=== PATIENT | female | born 1975 | race Caucasian/White ===

== ENCOUNTER 2020-06-25 08:39 | Emergency (ER) | payer OTHER ==
[~2020-06-25] VITALS: Ht 167.6 cm; Wt 104.3 kg
[2020-06-25 09:34] VITALS: BP 172/88
== END 2020-06-25 09:35 | disposition home or self-care (01) ==
LOC: M.ERS 08:39
DX: S61.511A Laceration without foreign body of right wrist, initial encounter (principal); Z90.711 Acquired absence of uterus with remaining cervical stump; W25.XXXA Contact with sharp glass, initial encounter; Y93.G1 Activity, food preparation and clean up; Y92.89 Other specified places as the place of occurrence of the external cause; Y99.8 Other external cause status

== ENCOUNTER 2021-02-04 18:18 | Emergency (ER) | payer OTHER ==
[~2021-02-04] VITALS: Ht 167.6 cm; Wt 90.7 kg
[2021-02-04 18:56] LABS: ABSOLUTE BASOPHILS 0.1 thou/uL (0.0-0.2); ABSOLUTE LYMPHOCYTES 2.1 thou/uL (0.8-5.3); ABSOLUTE MONOCYTES 0.5 thou/uL (0.0-1.2); ABSOLUTE NEUTROPHILS 9.3 thou/uL (1.6-8.1); BASOPHILS 0.9 %; EOSINOPHILS 0.3 %; HEMATOCRIT 41.6 % (37.0-47.0); HEMOGLOBIN 13.9 gm/dL (12.0-15.0); LYMPHOCYTES 17.3 %; MCH 28.4 pg (26.0-34.0); MCHC 33.3 g/dL (28.0-37.0); MCV 85.3 fL (80.0-100.0); MONOCYTES 4.5 %; MPV 8.1 fl. (7.2-11.1); NUCLEATED RBCS 0 /100WBC; PLATELET COUNT* 332 thou/uL (150-400); RBC 4.88 mil/uL (4.20-5.00); WBC 12.1 thou/uL (4.0-11.0)
[2021-02-04 19:20] LABS: ANION GAP 9 mmol/L (7-16); BUN 16 mg/dL (7-18); CALCIUM 8.8 mg/dL (8.5-10.1); CHLORIDE 102 mmol/L (98-107); CO2 25 mmol/L (21-32); CREATININE 1.1 mg/dL (0.6-1.3); GLUCOSE 162 mg/dL (70-99); POTASSIUM 3.4 mmol/L (3.5-5.1); SODIUM 136 mmol/L (136-145)
[2021-02-04 19:33] LABS: ALBUMIN 3.9 g/dL (3.4-5.0); ALKALINE PHOSPHATASE 89 U/L (46-116); CK-MB MASS < 0.5 ng/mL (<0.5-3.6); LIPASE 86 U/L (73-393); NT-PRO BRAIN NAT PEPTIDE 118 pg/mL (<300); SGOT 5 U/L (15-37); SGPT 14 U/L (30-65); TOTAL BILIRUBIN 1.5 mg/dL (<0.1-1.0); TOTAL PROTEIN 7.9 g/dL (6.4-8.2)
[2021-02-04] MEDS ORDERED: PROPRANOLOL 4040 M1 PO ×2 (21:06→21:39)
[2021-02-04 21:51] VITALS: BP 164/86
--- NOTE | 2021-02-05 09:03 | EKG ---
[place] [address] ELECTROCARDIOGRAM REPORT Name: ANEESH BUCKLEY Room: [facility]#: [id number] Admission: 02/04/21 Attend Phys: Discharge: 02/04/21 Date of : 79 Date of Service: 02/04/211818 Report #: [id number] THIS REPORT FOR: //name// [facility] ED Test Date: 2021-02-04 Test Time: 18:19:26 Pat Name: ANEESH BUCKLEY Department: Room: Gender: [employer]: : [id number] Requested By: Torito Vizcarra Order Number: [id number] MD: Modesto Galindo Measurements Intervals [place] Rate: 109 P: 63 WA: 186 QRS: 23 QRSD: 89 T: 7 QT: 341 QTc: 460 Interpretive Statements Sinus tachycardia Ventricular trigeminy Baseline wander in lead(s) II No previous ECG available for comparison Electronically Signed On 02-05-2021 9:03:11 HEPATOLOGY PHYSICIAN by Modesto Galindo [email or web address] <ELECTRONICALLY SIGNED> By: Modesto Galindo MD, [facility] 02/05/21902 18 18 Modesto Galindo MD, [facility] /EPI
== END 2021-02-04 21:52 | disposition home or self-care (01) ==
LOC: M.ERS 18:18
PROVIDERS: Family Medicine
DX: I10 Essential (primary) hypertension (principal); Z20.822 Contact with and (suspected) exposure to COVID-19; R07.89 Other chest pain; Z88.8 Allergy status to other drugs, medicaments and biological substances; Z90.710 Acquired absence of both cervix and uterus